=== PATIENT | male | born 1995 | race American Indian/Alaskan Native ===

== ENCOUNTER 2019-03-08 07:56 | Emergency (ER) | payer OTHER ==
[2019-03-08 08:14] VITALS: BP 132/83
[2019-03-08] MEDS ORDERED: BOOSTRIX IM ONE (10:18)
[2019-03-08] MEDS ORDERED: XYLOCAINE 1% MPF 5 mL INFILTRATI ONE (10:18)
--- NOTE | 2019-03-08 10:24 | Emergency Department Report ---
HPI - General Chief Complaint: Laceration/Recheck/Suture Time Seen by Provider: 03/08/19 09:29 - HPI HPI: 23-year-old right-hand dominant male presents to the emergency department with complaint of a laceration and pain to the dorsal left wrist that occurred just prior to presentation. The patient was working on some metal cable wire when one of them snapped and cut him across the wrist. He had some mild to moderate bleeding that stopped with some pressure dressing. Unknown last tetanus vaccination. No past medical history. ED Review of Systems ROS: Stated complaint: LFT WRIST LAC/PAIN Other details as noted in HPI Comment: All other systems reviewed and negative Constitutional: denies: chills, fever Musculoskeletal: arthralgia, myalgia. denies: joint swelling Skin: other (laceration). denies: rash Neurological: denies: numbness, paresthesias Physical Exam - Physical Exam Vital Signs: Vital Signs 03/08/19 08:13 Temperature 98.3 F Pulse Rate 56 L Respiratory 16 Rate Blood Pressure 132/83 [Right] O2 Sat by Pulse 99 Oximetry Physical Exam: GENERAL: The patient is well-developed well-nourished. HENT: Normocephalic. Atraumatic. Patient has moist mucous membranes. EYES: Extraocular motions are intact. NECK: Supple. Trachea is midline. ABDOMEN: There is no abdominal distention. SKIN: There is a 2-3 cm linear superficial laceration to the left dorsal wrist, just distal to the ulnar styloid. NEURO: The patient is awake, alert, and oriented. The patient is cooperative. The patient has no focal neurologic deficits. Normal speech. MUSCULOSKELETAL: Mild tenderness to palpation to the left wrist with the patient has a laceration. Radial pulse +2 over 4 and capillary refill less than 2 seconds to the affected left upper extremity. ED Course Vital Signs 03/08/19 08:13 Temperature 98.3 F Pulse Rate 56 L Respiratory 16 Rate Blood Pressure 132/83 [Right] O2 Sat by Pulse 99 Oximetry - Laceration /Wound Repair Wrist Wound Location: upper extremity (left dorsal wrist) Wound Length (cm): 3 Wound's Depth, Shape: superficial, linear Wound Explored: clean Irrigated w/ Saline (ccs): 100 Anesthesia: 1% Lidocaine Volume Anesthetic (ccs): 3 Wound Repaired With: sutures Suture Size/Type: 5:0 Number of Sutures: 7 Layer Closure?: No Sterile Dressing Applied?: Yes ED Medical Decision Making - Medical Decision Making This patient presents with dorsal left wrist laceration that is linear and superficial. No foreign body seen. Locally anesthesia, washed and close with simple interrupted sutures. Neurovascularly intact before and after the procedure. We discussed follow-up in 7 days for suture removal but he will be seen sooner with any signs or symptoms of infection. - Differential Diagnosis laceration, abrasion, cellulitis Critical Care Time: No Critical care attestation.: If time is entered above; I have spent that time in minutes in the direct care of this critically ill patient, excluding procedure time. ED Disposition Clinical Impression: Laceration of wrist Qualifiers: Encounter type: initial encounter Laterality: left Qualified Code(s): S61.512A - Laceration without foreign body of left wrist, initial encounter Disposition: TO HOME OR SELFCARE Is pt being admited?: No Condition: Stable Instructions: Suture Care (ED), Laceration (ED) Additional Instructions: The sutures will need to be removed in 7 days and can be done so at a primary care office, urgent care, or back in the emergency department. Return to the emergency department, or make sure you are seen sooner, with any signs or symptoms of infection such is surrounding redness, increased pain, swelling, development of fever, or with any acute distress. Referrals: PRIMARY CARE, [Primary Care Provider] - 2-3 Days Time of Disposition: 11:15
== END 2019-03-08 12:05 | disposition home or self-care (01) ==
LOC: ED 07:56
DX: S61.512A Laceration without foreign body of left wrist, initial encounter (principal); W45.8XXA Other foreign body or object entering through skin, initial encounter; Y93.89 Activity, other specified; Y92.89 Other specified places as the place of occurrence of the external cause; Y99.8 Other external cause status
CPT/HCPCS: 90471; 90715; 99282